=== PATIENT | female | born 1950 | race Caucasian/White ===

== ENCOUNTER 2020-05-08 12:49 | Outpatient (CLI) | payer MEDICARE, SELFPAY ==
--- NOTE | ~2020-05-08 | MMUS_ITS ---
EXAMINATION: MM diagnostic latoya LT w chance, US breast LT complete HISTORY: Six-month follow-up of left breast microcalcifications TECHNIQUE: 3-D tomosynthesis images of left breast were performed and synthetic 2-D images were gener ated. Magnification views. CAD analysis was submitted and interpreted. High resolution complete left breast ultrasound was performed. COMPARISON: 02/21/2019 diagnostic left digital mammogram 08/29/2018 diagnostic left digital mammogram 07/28/2018, 07/24/2017, 06/29/2016 bilateral digital screening mammogram BREAST PARENCHYMAL COMPOSITION: The breasts are extremely dense, which lowers the sensitivity of mamm ography. FINDINGS: MAMMOGRAPHIC FINDINGS: Indeterminate clusters of grouped microcalcifications are identified in the upper mid left breast and upper outer quadrant of the left breast. Stereotactic biopsy is recommended. The dense stroma prevents confident mammographic exclusion of small masses. ULTRASOUND: No solid mass or suspicious shadowing of the left breast is detected. IMPRESSION: 1. 2 clusters of grouped microcalcifications, upper mid and upper outer left breast 2. Stereotactic biopsy is recommended. BI-RADS category 4, suspicious findings. Reviewed, dictated and finalized at location A. IMPRESSION: 1. 2 clusters of grouped microcalcifications, upper mid and upper outer left br east 2. Stereotactic biopsy is recommended. BI-RADS category 4, suspicious findings.
== END 2020-05-08 12:50 | disposition home or self-care (01) ==
LOC: ANHIMG 12:50
PROVIDERS: PCP Family Medicine; Visit Provider Family Medicine
DX: R92.8 Other abnormal and inconclusive findings on diagnostic imaging of breast (principal)
CPT/HCPCS: 76641; 77061; 77065; G0279

== ENCOUNTER 2020-06-04 00:54 | Outpatient (CLI) | payer MEDICARE, SELFPAY ==
[2020-06-04 19:34] LABS: SARS-CoV-2 RNA PCR Negative
== END 2020-06-04 00:55 | disposition home or self-care (01) ==
LOC: ANHCOVIDDT 00:54
PROVIDERS: PCP Family Medicine; Visit Provider Surgery
DX: Z01.812 Encounter for preprocedural laboratory examination (principal); Z11.59 Encounter for screening for other viral diseases
CPT/HCPCS: 87635; C9803; U0003

== ENCOUNTER 2020-06-06 02:49 | Day surgery (SDC) | payer MEDICARE, SELFPAY ==
[2020-05-31 09:18] VITALS: BMI 17.2
--- NOTE | 2020-06-05 12:36 | P.PNAN_ITS ---
Anes - Initial Pre Proc Eval Procedure: Operation Date: 06/06/20 10:00 Proposed Procedures p Ultrasound And/Or Mammogram Guided Needle Localization, Excisional Biopsy of Left Breast - Soren Jon MD Date/Time: 06/05/20 12:36 Surgeon: Soren Jon MD Pre Op Diagnosis: Microcalcification of Left Breast Patient Data Age: 69 Gender: F Height: 5 ft 4.5 in Weight: 46.28 kg Allergies Allergy/AdvReac Type Severity Reaction Status Date / Time No Known Allergies Allergy Verified 06/06/20 06:49 Home Medications Medication Instructions Recorded Confirmed Type calcium-vitamin D3-vitamin K 2 tablet PO DAILY 05/31/20 06/06/20 History [Viactiv] sertraline 100 mg PO DAILY 05/31/20 06/06/20 History Patient hx anesthesia problems: none Family hx anesthesia problems: none [facility] Social History Social History Smoking status: Never smoker Second hand tobacco smoke exposure: No Alcohol intake: current Substance use: never Substance use type: does not use Living arrangements: alone Spiritual care concerns: No Anes - Eval Final PreProcedure Day of Procedure 06/05/20 12:36 Patient weight: normal Heart: regular rate and rhythm Lungs: clear to auscultation Airway: Mallampati scale class II Neurological: alert and oriented Last oral intake: >/= 8 hours ASA classification: II Emergent: no Anesthetic plan: proceed Anesthesia type and monitoring: general GIVS and standard monitoring Informed Consent: The patient's anesthetic plan and its attendant risks and benefits were discussed with the patient/family/POA. Questions were solicited and answers provided to the satisfaction of the patient/family/POA.
--- NOTE | ~2020-06-06 | MM_ITS ---
EXAMINATION: MM needle loc LT, MM surgical specimen LT, MM surgical specimen LT, MM needle loc LT ea add DATE: 06/06/2020 09:19 (accession [id number]), 06/06/2020 11:17 (accession [id number]) INDICATION: Indeterminate left breast calcifications. Patient presents for surgical excision due to i nability to perform stereotactic biopsy. TECHNIQUE: The procedure for a mammography-guided needle localization was discussed with the patient. Risks and benefits were detailed including risks of bleeding and infection. The patient verbalized u nderstanding and agreed to proceed. A time out was performed to verify the patient's name, date of , and site of procedure. The rajan ent was placed in craniocaudal compression, and the skin overlying the left breast was prepared in u sual fashion. Two groups of calcifications are identified, one in the posterior third of the outer br east and one in the middle third of the central breast. The skin and subcutaneous soft tissues were i nfiltrated with 1% lidocaine for local anesthesia. Utilizing mammography guidance, a needles were adv anced into the left breast. Procedure was technically complicated due to breast size and difficulty o btaining adequate needle purchase in the breast between switching positions. Two confirmatory films w ere obtained. The patient tolerated procedure without immediate complication. Specimen radiographs were performed. FINDINGS: Two view confirmatory films of the left breast demonstrates a wire is adjacent to the indet erminate calcifications. The more lateral and posterior group of calcifications is seen just beyond t he hook of the localization wire. The central calcifications are seen adjacent to the tip of the loca lization wire. The calcifications are contained within the surgical specimens. IMPRESSION: 1. Successful mammography-guided left breast needle localization. Reviewed, dictated and finalized at location D. IMPRESSION: 1. Successful mammography-guided left breast needle localization. IMPRESSION: 1. Successful mammography-guided left breast needle localization. IMPRESSION: 1. Successful mammography-guided left breast needle localization.
[2020-06-06] MEDS: LACTATED RINGERS 1,000 ML 30 ML IV CONT (07:20)
--- NOTE | 2020-06-06 07:43 | SUR.PREOP ---
To mammography per w/c.
[2020-06-06 08:01] VITALS: BP 110/54; PULSE 59; RESP 16; TEMP 36.6; O2SAT 100
--- NOTE | 2020-06-06 09:21 | SUR.PREOP ---
0905 returned from [facility] .
--- NOTE | 2020-06-06 09:52 | WPDHPUPDATE1 ---
History and Physical Update Update Date/Time: 06/06/20 09:52 History and Physical has been reviewed, including an updated exam of the patient. There are NO changes in the patient's condition. Risks, benefits, and alternatives have been discussed and questions answered. Patient agrees to proceed with procedure.
[2020-06-06] MEDS: ceFAZolin 2 GM/D5W 50 ML 2 GM/50 ML BAG IVPB (10:18)
[2020-06-06] MEDS: BUPIVACAINE/EPINEPHRINE 0.5% 30 ML VIAL INFILTRATE (10:54)
[2020-06-06 11:25] VITALS: BP 122/48; PULSE 96; RESP 14; TEMP 36.1; O2SAT 96
--- NOTE | 2020-06-06 11:39 | PM.PROC ---
Procedure Note - Detailed Date of procedure: 06/06/20 Pre-op diagnosis: Microcalcification of Left Breast Microcalcifications in 2 areas of left breast, 1 above the nipple, 1 lateral. Post-op diagnosis: same Procedure performed: Needle localization excisional biopsy of 2 left breast lesions Description of procedure: The patient went to x-ray prior to surgery. I discussed the localization procedure with the radiologist Dr. Cedillo. Wire localization was performed. I saw her preoperatively in the holding area. She went back to surgery in was induced into general anesthesia per LMA. The left breast was prepped and draped taking care not to disturb the localizing wires. Two incisions were marked on the skin. The upper midline lesion was marked with a a curved incision just above the nipple judged to be near the tip of the more medial wire. The 2nd incision was also circumareolar but oriented more cranial to caudal in the lateral aspect of the left breast. We started with the upper midline lesion. Local anesthesia was infiltrated in the area of the anticipated incision and in the deeper subcutaneous tissues. Incision was made and just below the skin we can see that the tip of the wire was very close. The calcifications were very superficial as well. This area of breast tissue was carefully and completely excised leaving the wire in place. Specimen mammogram showed that the microcalcifications were included in the specimen. This wound was closed with deeper let tissue closure of 3 0 Monocryl. Subcuticular interrupted 4 O Monocryl skin stitches were placed. We then turned our attention to the more lateral grouping of microcalcifications. This proposed incision was infiltrated with local as well. Incision was made and dissection was carried down through the breast tissue to the area of the hook of the wire. The wire was dissected away from the hook and then the into the wire was pulled through the skin and brought out the wound. I then excised the hook of the wire with the corresponding breast tissue. This was submitted for mammographies. The microcalcifications were not in the specimen. I discussed this with the radiologist, Dr. Cedillo. It appeared that the microcalcifications would be more caudal than the tissue I already removed. I then targeted this area of breast tissue and excised 2 additional pieces of breast tissue. These were sent for specimen mammogram. The larger of the 2 pieces did contain the microcalcifications. This wound was made hemostatic with the cautery. It was closed in layers with interrupted 3 0 Monocryl suture. Subcuticular interrupted 4 O Monocryl skin stitches were placed. The wound was dressed with Exofin surgical adhesive. The patient tolerated the procedure well. She transferred to recovery in good condition. Sponge and needle counts were correct x2. Anesthesia: GLMA Surgeon: Soren Jon MD [employer]icated Local [employer] Driver: Ari TAMAYO Estimated blood loss (mL): 5 Drains: No Packing: No Pathology: yes ( to areas of microcalcification: 1 upper midline or medial; the other lateral) Complications: None Condition: stable Disposition: PACU Findings: specimen mammogram confirmed presence of microcalcifications in both biopsy submitted.
[2020-06-06 11:40] VITALS: BP 114/60; PULSE 83; RESP 20; O2SAT 100
[2020-06-06 11:55] VITALS: BP 114/63; PULSE 77; RESP 14; O2SAT 100
[2020-06-06 11:59] VITALS: BP 125/65; PULSE 76; RESP 14
[2020-06-06 12:25] VITALS: BP 129/65; PULSE 83; RESP 14
== END 2020-06-06 12:39 | disposition home or self-care (01) ==
PROVIDERS: PCP Family Medicine; Visit Provider Surgery
PROC: (CPT 19125; principal; 2020-06-06 10:00)
DX: N60.32 Fibrosclerosis of left breast (principal); N60.42 Mammary duct ectasia of left breast; N62 Hypertrophy of breast; F32.9 Major depressive disorder, single episode, unspecified; F41.9 Anxiety disorder, unspecified; Z80.0 Family history of malignant neoplasm of digestive organs; Z79.899 Other long term (current) drug therapy
CPT/HCPCS: 19125; 19126; 19281; 19282; 76098; 88305; A9270; C1769; J0690; J1100; J2405; J2704; J3010; J7120

== ENCOUNTER 2021-12-05 07:50 | Outpatient (CLI) | payer MEDICARE, SELFPAY ==
--- NOTE | ~2021-12-05 | MM_ITS ---
EXAMINATION: MM screening latoya BI w chance HISTORY: Screening mammogram TECHNIQUE: Craniocaudal and mediolateral oblique 3-D tomosynthesis images were obtained and synthetic 2-D images were generated. Bilateral rotated lateral CC views. CAD analysis was submitted and interp reted. COMPARISON: 05/08/2020 diagnostic left mammogram and complete left breast ultrasound 02/21/2019, 08/19/2018 diagnostic left mammogram examinations 07/28/2018, 07/24/2017 bilateral screening mammogram examinations BREAST PARENCHYMAL COMPOSITION: The breasts are heterogeneously dense, which may obscure small masses . FINDINGS: Previously reported 2 clusters of grouped left breast microcalcifications are no longer melly dent; history of benign open biopsy. There is architectural distortion in the upper left breast, best demonstrated on MLO Tomosynthesis im age 16/33, possibly due to postbiopsy change. Diagnostic left mammogram and left breast ultrasound ex amination are recommended. Otherwise there is no evidence of suspicious mass, calcification, or architectural distortion to sugg est malignancy in either breast. There has been no other suspicious interval change. IMPRESSION: 1. Architectural distortion, upper left breast, possibly due to prior reported open biopsy 2. Diagnostic left mammogram and left breast ultrasound examination are recommended. BI-RADS Category 0: Incomplete: Needs additional imaging evaluation. Reviewed, dictated and finalized at location A. D BROOMER IMPRESSION: 1. Architectural distortion, upper left breast, possibly due to prior reported open biopsy 2. Diagnostic left mammogram and left breast ultrasound examination are recomme nded. BI-RADS Category 0: Incomplete: Needs additional imaging evaluation.
== END 2021-12-05 07:51 | disposition home or self-care (01) ==
LOC: ANHIMG 07:52
PROVIDERS: PCP Family Medicine; Visit Provider Family Medicine
DX: Z12.31 Encounter for screening mammogram for malignant neoplasm of breast (principal); R92.8 Other abnormal and inconclusive findings on diagnostic imaging of breast
CPT/HCPCS: 77063; 77067

== ENCOUNTER 2021-12-26 12:38 | Outpatient (CLI) | payer MEDICARE, SELFPAY ==
--- NOTE | ~2021-12-26 | MM_ITS ---
EXAMINATION: MM diagnostic latoya LT w chance HISTORY: Left breast architectural distortion TECHNIQUE: Additional 3-D tomosynthesis images of the left breast were performed and synthetic 2-D im ages were generated. CAD analysis was submitted and interpreted. COMPARISON: 11/15/2021, 06/06/2020, 04/30/2020,10/10/2019, 02/21/2019 FINDINGS: Left breast architectural distortion is seen at the site of excisional biopsy performed on 06/06/2020. No suspicious interval change is identified. There is no mass or suspicious calcification. IMPRESSION: 1. No mammographic evidence of malignancy. 2. Recommend routine screening mammography in one year. BI-RADS Category 2: Benign finding(s). Reviewed, dictated and finalized at location A.
== END 2021-12-26 12:39 | disposition home or self-care (01) ==
PROVIDERS: PCP Family Medicine; Visit Provider Family Medicine
DX: R92.8 Other abnormal and inconclusive findings on diagnostic imaging of breast (principal)
CPT/HCPCS: 77061; 77065; G0279

== ENCOUNTER 2023-01-29 07:44 | Outpatient (CLI) | payer MEDICARE, SELFPAY ==
--- NOTE | ~2023-01-29 | DEXA_ITS ---
Bone Density Report Name: JAYLAN MUNOZ Age: 72 Sex: Female Ethnicity: White Date of : 1950 Indication: osteopenia; postmenopausal Referring Provider: RIMA RODRÍGUEZ Study: Bone densitometry was performed. Exam Date: January 29, 2023 Accession number: [id number] Bone Density: Region BMD T-score Z-score Classification AP Spine(L1-L4) 0.872 -1.6 0.6 Osteopenia Femoral Neck (Left) 0.528 -2.9 -1.0 Osteoporosis Total Hip (Left) 0.680 -2.1 -0.6 Osteopenia Femoral Neck (Right) 0.506 -3.1 -1.2 Osteoporosis Total Hip (Right) 0.650 -2.4 -0.8 Osteopenia Total Hip Mean 0.665 -2.3 -0.7 Osteopenia World Health Organization criteria for BMD impression classify patients as: Normal (T-score at or above -1.0), Osteopenia (T-score between -1.0 and -2.5), or Osteoporosis (T-score at or below -2.5). 10-year Fracture Risk: FRAX not reported because: Some T-score for Spine Total or Hip Total or Femoral Neck at or below -2.5 Previous Exams: Region Exam Age BMD T-score BMD Change BMD Change Date g/cm2 vs Baseline vs Previous AP Spine (L1-L4) 01/29/2023 72 0.872 -1.6 -0.017 (-1.9%) -0.017 (-1.9%) 09/23/2017 66 0.889 -1.4 Total Hip(Left) 01/29/2023 72 0.680 -2.1 -0.062 (-8.4%) -0.062 (-8.4%) 09/23/2017 66 0.743 -1.6 Total Hip(Right) 01/29/2023 72 0.650 -2.4 -0.047 (-6.7%) -0.047 (-6.7%) 09/23/2017 66 0.697 -2.0 *Denotes significance at 95% confidence level, LSC for AP Spine = 0.022 g/cm2, LSC for Total Hip = 0.027 g/cm2 Clinical Information Provided by Patient: Has used the following medications: Fosamax (i.e. alendronate), Vitamin D, Calcium Patient maximum height was 64.5 Menopause Age: 56 Drinks caffeinated beverages Onset of menses at age 15 Number of children 3 Impression: The patient has osteoporosis, based on the Right Femoral Neck T-score. The BMD for the Total Hip(Left) decreased, changing by -8.4% since the last DXA exam. The BMD for the Total Hip(Right) decreased, changing by -6.7% since the last DXA exam. Discussion: INCREASED RISK OF FRACTURE. BONE DENSITY IS UNDESIRABLY LOW AT ONE OR MORE SKELETAL SITES, CONSISTENT WITH POSTMENOPAUSAL OSTEOPOROSIS. This patient's lowest T-score meets the World Health Organization's (WHO) criteria for osteoporosis at one or more sites (T-score -2.5 or below). In untreated patients, the risk of osteoporotic fracture increases approximately two-fold for each 1.0 SD decrease in
--- NOTE | ~2023-01-29 | MM_ITS ---
EXAMINATION: MM screening [facility] BI w chance HISTORY: Screening mammogram TECHNIQUE: Craniocaudal and mediolateral oblique 3-D tomosynthesis images were obtained and synthetic 2-D images were generated. CAD analysis was submitted and interpreted. COMPARISON: 12/26/2021, 12/05/2021, 05/08/2020, 02/21/2019, 07/28/2018 BREAST PARENCHYMAL COMPOSITION: The breasts are heterogeneously dense, which may obscure small masses . FINDINGS: No suspicious mass, calcification, or architectural distortion are identified in either vicente ast to suggest malignancy. There has been no suspicious interval change. IMPRESSION: 1. No mammographic evidence of malignancy. 2. Recommend routine screening mammography in one year. BI-RADS Category 1: Negative Reviewed, dictated and finalized at location A.
== END 2023-01-29 07:45 | disposition home or self-care (01) ==
PROVIDERS: PCP Family Medicine; Visit Provider Family Medicine
DX: Z12.31 Encounter for screening mammogram for malignant neoplasm of breast (principal); M81.0 Age-related osteoporosis without current pathological fracture; Z78.0 Asymptomatic menopausal state
CPT/HCPCS: 77063; 77067; 77080

== ENCOUNTER 2023-12-02 08:57 | Outpatient (CLI) | payer MEDICARE, SELFPAY ==
[2023-12-02 13:35] LABS: Basophils Percent Auto 0.7 % (0.2-1.2); Eosinophils Absolute Auto 0.2 K/mm3 (0-0.3); Eosinophils Percent Auto 3.3 % (0-4.4); Hematocrit 43.3 % (37.0-47.0); Hemoglobin 13.5 g/dL (12.0-15.0); Immature Granulocyte Absolute 0.01 K/mm3 (0.00-0.031); Immature Granulocyte Percent A 0.2 % (0-0.5); Lymphocytes Absolute Auto 0.98 K/mm3 (0.9-3.2); Lymphocytes Percent Auto 21.3 % (18.3-44.2); Mean Corpuscular HGB Conc 31.2 g/dl (32-36); Mean Corpuscular Hemoglobin 29.4 pg (26-34); Mean Corpuscular Volume 94.3 fl (80-100); Monocytes Absolute Auto 0.3 K/mm3 (0.1-0.6); Monocytes Percent Auto 6.7 % (2.6-8.5); Neutrophils Absolute Auto 3.1 K/mm3 (1.3-6.7); Neutrophils Percent Auto 67.8 % (45.5-73.1); Platelet Count Result 226 k/mm3 (150-375); Red Blood Count 4.59 M/mm3 (4.2-5.4); Red Cell Distribution Width 13.7 % (11.5-14.5); White Blood Count 4.6 K/mm3 (4.5-10.0)
[2023-12-02 14:20] LABS: Alanine Aminotransferase 20 U/L (6-35); Albumin Level 4.3 g/dL (3.5-5.1); Alkaline Phosphatase 73 U/L (38-126); Anion Gap 6 mmol/L (8-16); Aspartate Amino Transferase 46 U/L (14-36); Bilirubin,Total 0.5 mg/dL (0.2-1.3); Blood Urea Nitrogen 18 mg/dL (7-17); Calcium 9.4 mg/dL (8.4-10.2); Carbon Dioxide 30 mmol/L (22-30); Chloride 102 mmol/L (98-107); Cholesterol 177 mg/dL (0-200); Estimated Glomerular Filt Rate > 60; Glucose 86 mg/dL (65-110); HDL Direct 68 mg/dL; Potassium 4.3 mmol/L (3.4-5.0); Sodium 138 mmol/L (137-145); Triglycerides 107 mg/dL (<150)
[2023-12-02 14:32] LABS: LDL Cholesterol Direct 86 mg/dL
[2023-12-02 14:40] LABS: Vitamin D 25 Hydroxy 36.1 ng/mL
== END 2023-12-02 08:58 | disposition home or self-care (01) ==
LOC: ANHGOSHLAB 08:58
PROVIDERS: PCP Family Medicine; Visit Provider Family Medicine
DX: E78.5 Hyperlipidemia, unspecified (principal); R92.0 Mammographic microcalcification found on diagnostic imaging of breast; E53.8 Deficiency of other specified B group vitamins; F41.8 Other specified anxiety disorders; M81.0 Age-related osteoporosis without current pathological fracture; R49.0 Dysphonia; E55.9 Vitamin D deficiency, unspecified; Z79.899 Other long term (current) drug therapy
CPT/HCPCS: 36415; 80053; 80061; 82306; 82607; 84443; 85025

== ENCOUNTER 2023-12-30 06:43 | Day surgery (SDC) | payer MEDICARE, SELFPAY ==
[2023-12-04 15:20] VITALS: BMI 20.7
[2023-12-17 13:33] VITALS: BMI 20.4
--- NOTE | 2023-12-29 17:43 | WPDANESEPPF ---
Anes - Initial Pre Proc Eval Procedure: Operation Date: 12/30/23 08:30 Proposed Procedures p Colonoscopy - Agapito Sequeira MD Date/Time: 12/29/23 17:43 Surgeon: Agapito Sequeira MD Pre Op Diagnosis: Family HX Malignant Neoplasm of Digestive System Patient Data Age: 73 Gender: F Height: 1.63 m Weight: 54 kg Allergies Allergy/AdvReac Type Severity Reaction Status Date / Time No Known Allergies Allergy Verified 12/30/23 07:10 Home Medications Medication Instructions Recorded Confirmed Type calcium 650 mg-vitamin D3 12.5 2 tablet PO DAILY 05/31/20 12/30/23 History mcg-vitamin K 40 mcg chewable tablet (Viactiv) denosumab 60 mg/mL subcutaneous 60 mg subcut [id number] 12/02/23 12/30/23 History syringe (Prolia) sertraline 100 mg tablet 100 mg PO DAILY #90 tabs 12/07/23 12/30/23 Rx vitamin B complex 1 tablet PO DAILY 12/17/23 12/30/23 History Patient hx anesthesia problems: none Family hx anesthesia problems: none Results Review: All pre-operative results and documents have been reviewed as part of the pre-operative evaluation. [facility] Past Medical History Medical History (Updated 12/30/23 @ 08:19 by Agapito Sequeira MD) Adult acne Depression with anxiety 09/20/2018 Dysphonia Family history of colon cancer in mother History of benign breast biopsy History of colon polyps Osteoporosis without current pathological fracture 09/15/2017 Surgical History Surgical History History of cataract surgery Hx of breast biopsy 1995 and 199706/06/20 localization excisional bx left breast. Hx of section 1982, 1987, 1989 Family History Family History Mother Colon cancer Other Carcinoma of colon Family history of coronary artery disease Hypertension Social History Social History Smoking status: Never smoker Second hand tobacco smoke exposure: No Alcohol intake: current Drinks per week: 0 Alcohol use details: ON SPECIAL OCCASIONS Substance use: never Substance use type: does not use Do You Feel Safe in your Home?: Yes Lack of Transportation: No Lack of Food: Never True Current Housing: I Have Housing Concerned About Future Housing: No Difficulty Paying Gas/Electric Bills: No Difficulty Paying for Meds: No Currently Unemployed: No Education: Master's Degree or Higher Difficulty w/ Childcare or Family Care: No Living arrangements: alone Occupation/Education: retired Gender identity (if verbalized by the patient): Female Spiritual care concerns: No Agree to blood products: Yes Anes - Eval Final PreProcedure Day of Procedure 12/29/23 17:43 Patient weight: normal Heart: regular rate and rhythm Lungs: clear to auscultation and normal air movement Airway: Mallampati scale class II Neurological: alert and oriented Last oral intake: >/= 8 hours ASA classification: II Emergent: no Anesthetic plan: proceed Anesthesia type and monitoring: general GIVS and standard monitoring Results Review: All pre-operative results and documents have been reviewed as part of the pre-operative evaluation. Informed Consent: The patient's anesthetic plan and its attendant risks and benefits were discussed with the patient/family/POA. Questions were solicited and answers provided to the satisfaction of the patient/family/POA.
[2023-12-30 07:15] VITALS: BP 116/68; PULSE 67; RESP 14; TEMP 36.9; O2SAT 96
[2023-12-30] MEDS: LACTATED RINGERS 1,000 ML 150 ML IV CONT (07:24)
--- NOTE | 2023-12-30 08:16 | PM.HPGS ---
History of Present Illness History of Present Illness Consent: Risks, benefits, and alternatives have been discussed and questions answered. Patient agrees to proceed with procedure. Chief complaint: Family HX Malignant Neoplasm of Digestive System Narrative: Maria Antonia Peralta is a 73 year old female presents for screening colonoscopy. Patient's current weight appetite and bowel movements are normal. Patient denies abdominal pain. Has had no bleeding. Family history is significant that her mother had colon cancer. Patient may have had colon polyps years ago Review of Systems Review of Systems: Review of systems noncontributory. [facility] Past Medical History Medical History (Updated 12/30/23 @ 08:19 by Agapito Sequeira MD) Adult acne Depression with anxiety 09/20/2018 Dysphonia Family history of colon cancer in mother History of benign breast biopsy History of colon polyps Osteoporosis without current pathological fracture 09/15/2017 Surgical History Surgical History History of cataract surgery Hx of breast biopsy 1995 and 199706/06/20 localization excisional bx left breast. Hx of section 1982, 1987, 1989 Family History Family History Mother Colon cancer Other Carcinoma of colon Family history of coronary artery disease Hypertension Social History Social History Smoking status: Never smoker Second hand tobacco smoke exposure: No Alcohol intake: current Drinks per week: 0 Alcohol use details: ON SPECIAL OCCASIONS Substance use: never Substance use type: does not use Do You Feel Safe in your Home?: Yes Lack of Transportation: No Lack of Food: Never True Current Housing: I Have Housing Concerned About Future Housing: No Difficulty Paying Gas/Electric Bills: No Difficulty Paying for Meds: No Currently Unemployed: No Education: Master's Degree or Higher Difficulty w/ Childcare or Family Care: No Living arrangements: alone Occupation/Education: retired Gender identity (if verbalized by the patient): Female Spiritual care concerns: No Agree to blood products: Yes Meds Home Medications and Allergies Home Medications Medication Instructions Recorded Confirmed Type calcium 650 mg-vitamin D3 12.5 2 tablet PO DAILY 05/31/20 12/30/23 History mcg-vitamin K 40 mcg chewable tablet (Viactiv) denosumab 60 mg/mL subcutaneous 60 mg subcut [id number] 12/02/23 12/30/23 History syringe (Prolia) sertraline 100 mg tablet 100 mg PO DAILY #90 tabs 12/07/23 12/30/23 Rx vitamin B complex 1 tablet PO DAILY 12/17/23 12/30/23 History Allergies Allergy/AdvReac Type Severity Reaction Status Date / Time No Known Allergies Allergy Verified 12/30/23 07:10 Vital Signs Vital Signs - 24 hr 12/30/23 07:15 Temperature 98.4 F Pulse Rate 67 Respiratory Rate 14 Blood Pressure 116/68 Pulse Oximetry 96 Oxygen Delivery Room Air Exam Narrative: Physical exam reveals patient to be alert. Vital signs stable. HEENT exam is unremarkable. the patient Is hard of hearing. patient is anicteric. Lungs are clear to auscultation and percussion. Heart is without murmur or extra sounds. Abdomen now nodes are present soft nontender with no organomegaly. Digital external rectal exam normal. Assessment and Plan Assessment and plan (1) Family history of colon cancer in mother: Code(s): Z80.0 - Family history of malignant neoplasm of digestive organs Status: Acute Assessment and Plan: Patient's mother has had colon cancer. Plan for surveillance colonoscopy at 5 year intervals.
[2023-12-30 08:49] VITALS: BP 85/44; PULSE 70; RESP 16; O2SAT 99
[2023-12-30 08:59] VITALS: BP 91/58; PULSE 66; RESP 16; O2SAT 100
[2023-12-30 09:09] VITALS: BP 104/74; PULSE 64; RESP 20; O2SAT 100
--- NOTE | 2023-12-30 12:28 | WPDANESPN ---
Anes - Prog Note Post-Op Date/Time: 12/30/23 12:28 Cardiovascular status: normal Respiratory status: normal Airway patency: baseline Mental status: baseline Post-Op hydration status: normal Vital Signs: Last Vital Signs Temp 36.9 C 12/30/23 07:15 Pulse 64 12/30/23 09:09 Resp 20 12/30/23 09:09 BP 104/74 12/30/23 09:09 Pulse Ox 100 12/30/23 09:09 O2 Del Method Room Air 12/30/23 09:09 Pain Score (VAS): 0 I/O: Intake & Output 12/29/23 12/30/23 12/30/23 23:59 07:59 15:59 Intake Total 600 Balance 600 Post-procedural complaints: none Patient Feedback: Patient satisfied with anesthetic care. Other Findings: Patient vital signs back to baseline. Patient denies nausea and vomiting. Patient's pain under control. Patient OK for discharge.
== END 2023-12-30 09:20 | disposition home or self-care (01) ==
PROVIDERS: PCP Family Medicine; Visit Provider Internal Medicine Gastroenterology
PROC: 0DJD8ZZ Inspection of Lower Intestinal Tract, Via Natural or Artificial Opening Endoscopic (ICD-10-PCS; CPT 45378; principal; 2023-12-30 08:30)
DX: Z80.0 Family history of malignant neoplasm of digestive organs (principal); D12.5 Benign neoplasm of sigmoid colon; K57.30 Diverticulosis of large intestine without perforation or abscess without bleeding; K64.8 Other hemorrhoids
CPT/HCPCS: 45380

== ENCOUNTER 2023-12-30 14:24 | Outpatient (NON) | payer MEDICARE, SELFPAY | END 2023-12-30 14:25 | disposition home or self-care (01) | PROVIDERS: PCP Family Medicine; Visit Provider Internal Medicine Gastroenterology | DX: Z12.11 Encounter for screening for malignant neoplasm of colon (principal); Z80.0 Family history of malignant neoplasm of digestive organs | CPT/HCPCS: 88305 ==

== ENCOUNTER 2024-03-10 09:39 | Outpatient (CLI) | payer MEDICARE, SELFPAY ==
[2024-03-10 13:45] LABS: Alanine Aminotransferase 18 U/L (6-35); Albumin Level 4.5 g/dL (3.5-5.1); Alkaline Phosphatase 76 U/L (38-126); Anion Gap 4 mmol/L (4-12); Aspartate Amino Transferase 37 U/L (14-36); Bilirubin,Total 0.5 mg/dL (0.2-1.3); Blood Urea Nitrogen 21 mg/dL (7-17); Calcium 9.4 mg/dL (8.4-10.2); Carbon Dioxide 30 mmol/L (22-30); Chloride 103 mmol/L (98-107); Estimated Glomerular Filt Rate > 60; Glucose 91 mg/dL (65-110); Potassium 4.3 mmol/L (3.4-5.0); Sodium 137 mmol/L (137-145)
== END 2024-03-10 09:40 | disposition home or self-care (01) ==
LOC: ANHGOSHLAB 09:41
PROVIDERS: PCP Family Medicine; Visit Provider Nurse Practitioner Family
DX: R74.8 Abnormal levels of other serum enzymes (principal)
CPT/HCPCS: 36415; 80053

== ENCOUNTER 2024-03-23 08:25 | Outpatient (CLI) | payer MEDICARE, SELFPAY ==
--- NOTE | ~2024-03-23 | MM_ITS ---
EXAMINATION: MM screening latoya BI w chance HISTORY: Screening TECHNIQUE: Craniocaudal and mediolateral oblique 3-D tomosynthesis images were obtained and synthetic 2-D images were generated. CAD analysis was submitted and interpreted. COMPARISON: Comparison to multiple prior studies sequentially, with oldest reviewed study dated 12/05. BREAST PARENCHYMAL COMPOSITION: Dense: The breasts are heterogeneously dense, which may obscure small masses FINDINGS: There are new asymmetries in the central aspect of the right breast. The left breast is sta ble without evidence for malignancy. IMPRESSION: 1. New right breast asymmetries. 2. Additional mammographic views and possible breast ultrasound are recommended. BI-RADS Category 0: Incomplete: Needs additional imaging evaluation. Reviewed, dictated and finalized at location B. IMPRESSION: 1. New right breast asymmetries. 2. Additional mammographic views and possible breast ultrasound are recommended . BI-RADS Category 0: Incomplete: Needs additional imaging evaluation.
== END 2024-03-23 08:26 | disposition home or self-care (01) ==
LOC: ANHIMG 08:27
PROVIDERS: PCP Family Medicine; Visit Provider Family Medicine
DX: Z12.31 Encounter for screening mammogram for malignant neoplasm of breast (principal); R92.8 Other abnormal and inconclusive findings on diagnostic imaging of breast
CPT/HCPCS: 77063; 77067

== ENCOUNTER 2024-04-07 13:22 | Outpatient (CLI) | payer MEDICARE, SELFPAY ==
--- NOTE | ~2024-04-07 | MM_ITS ---
EXAMINATION: MM diagnostic latoya RT w chance HISTORY: Right breast asymmetry TECHNIQUE: Additional 3-D tomosynthesis images of the right breast were performed and synthetic 2-D i mages were generated. CAD analysis was submitted and interpreted. COMPARISON: 03/23/2024, 01/29/2023, 12/05/2021 FINDINGS: Breast parenchyma is heterogeneously dense, which may obscure small masses. The area of asymmetry in the right breast effaces with spot compression. No persistent mass lesion or distortion seen. No suspicious microcalcification. IMPRESSION: No mammographic evidence for malignancy. BI-RADS Category 1: Negative Reviewed, dictated and finalized at location .
== END 2024-04-07 13:23 | disposition home or self-care (01) ==
PROVIDERS: PCP Family Medicine; Visit Provider Nurse Practitioner
DX: R92.8 Other abnormal and inconclusive findings on diagnostic imaging of breast (principal)
CPT/HCPCS: 77061; 77065; G0279

== ENCOUNTER 2024-12-07 09:05 | Outpatient (CLI) | payer MEDICARE, SELFPAY ==
[2024-12-07 10:29] LABS: Alanine Aminotransferase 20 U/L (6-35); Albumin Level 4.4 g/dL (3.5-5.1); Alkaline Phosphatase 76 U/L (38-126); Anion Gap 6 mmol/L (4-12); Aspartate Amino Transferase 24 U/L (14-36); Bilirubin,Total 0.4 mg/dL (0.2-1.3); Blood Urea Nitrogen 17 mg/dL (7-17); Calcium 8.9 mg/dL (8.4-10.2); Carbon Dioxide 30 mmol/L (22-30); Chloride 104 mmol/L (98-107); Cholesterol 176 mg/dL (0-200); Estimated Glomerular Filt Rate > 60; Glucose 90 mg/dL (65-110); HDL Direct 78 mg/dL; Potassium 4.9 mmol/L (3.4-5.0); Sodium 140 mmol/L (137-145); Triglycerides 92 mg/dL (<150)
[2024-12-07 10:31] LABS: Basophils Percent Auto 0.8 % (0.2-1.2); Eosinophils Absolute Auto 0.2 K/mm3 (0-0.3); Eosinophils Percent Auto 3.3 % (0-4.4); Hematocrit 42.6 % (37.0-47.0); Hemoglobin 13.5 g/dL (12.0-15.0); Immature Granulocyte Absolute 0.01 K/mm3 (0.00-0.031); Immature Granulocyte Percent A 0.2 % (0-0.5); Lymphocytes Absolute Auto 0.89 K/mm3 (0.9-3.2); Lymphocytes Percent Auto 17.3 % (18.3-44.2); Mean Corpuscular HGB Conc 31.7 g/dl (32-36); Mean Corpuscular Hemoglobin 29.6 pg (26-34); Mean Corpuscular Volume 93.4 fl (80-100); Mean Platelet Volume 10.8 fl (7.4-10.4); Monocytes Absolute Auto 0.3 K/mm3 (0.1-0.6); Monocytes Percent Auto 6.2 % (2.6-8.5); Neutrophils Absolute Auto 3.7 K/mm3 (1.3-6.7); Neutrophils Percent Auto 72.2 % (45.5-73.1); Platelet Count Result 204 k/mm3 (150-375); Red Blood Count 4.56 M/mm3 (4.2-5.4); Red Cell Distribution Width 13.2 % (11.5-14.5); White Blood Count 5.1 K/mm3 (4.5-10.0)
[2024-12-07 10:40] LABS: LDL Cholesterol Direct 76 mg/dL
[2024-12-07 20:06] LABS: Hemoglobin A1C 5.6 % (<5.7)
[2024-12-07 20:54] LABS: Vitamin D 25 Hydroxy 33.1 ng/mL
== END 2024-12-07 09:06 | disposition home or self-care (01) ==
LOC: ANHGOSHLAB 09:05
PROVIDERS: PCP Family Medicine; Visit Provider Family Medicine
DX: E78.5 Hyperlipidemia, unspecified (principal); R73.9 Hyperglycemia, unspecified; E55.9 Vitamin D deficiency, unspecified; F41.8 Other specified anxiety disorders; R74.8 Abnormal levels of other serum enzymes; E53.8 Deficiency of other specified B group vitamins; Z79.899 Other long term (current) drug therapy
CPT/HCPCS: 36415; 80053; 80061; 82306; 82607; 83036; 84443; 85025

== ENCOUNTER 2024-12-07 10:09 | Outpatient (CLI) | payer MEDICARE, SELFPAY ==
--- NOTE | ~2024-12-07 | US_ITS ---
EXAMINATION: US thyroid DATE: 12/07/2024 10:21 INDICATION: Nontoxic goiter TECHNIQUE: Multiple ultrasound images of the thyroid were obtained. COMPARISON: None. FINDINGS: The right thyroid lobe measures 5.2 x 2.4 x 2.2 cm. The left thyroid lobe measures 5.3 x 1.4 x 1.3 c m. Wider than tall 2.9 x 2.0 x 2.1 cm solid isoechoic and hypervascular nodule with smooth margins a nd without echogenic foci in the right thyroid lobe (TI-RADS 3, mildly suspicious , FNA if >=2.5 cm, annual followup is >=1.5 cm). There is a second 1.2 cm nodule in the left thyroid with similar imagin g features with the exception of also containing some hyperechoic foci, (TI-RADS 4, moderately suspic ious , FNA if >=1.5 cm, annual followup is >=1 cm). IMPRESSION: 1. 2.9 cm TI RADS 3 right thyroid nodule for which ultrasound guided fine-needle aspiration would be recommended and 1.2 cm TI RADS 4 left thyroid nodule for which annual ultrasound follow-up would be r ecommended. Reviewed, dictated and finalized at location B. [facility]MINISTR[facility] IMPRESSION: 1. 2.9 cm TI RADS 3 right thyroid nodule for which ultrasound guided fine-needl e aspiration would be recommended and 1.2 cm TI RADS 4 left thyroid nodule for which annual ultrasound follow-up would be recommended.
== END 2024-12-07 10:10 | disposition home or self-care (01) ==
LOC: GOSHIMG 10:09
PROVIDERS: PCP Family Medicine; Visit Provider Family Medicine
DX: E04.2 Nontoxic multinodular goiter (principal)
CPT/HCPCS: 76536

== ENCOUNTER 2025-01-05 12:32 | Outpatient (CLI) | payer MEDICARE, SELFPAY ==
--- NOTE | ~2025-01-05 | US_ITS ---
EXAMINATION: US FNA w image guidance DATE: 01/05/2025 13:30 INDICATION: Nontoxic single thyroid nodule. TECHNIQUE: The procedure and its benefits and risks were discussed with the patient. Risks specifically discusse d included bleeding. The patient verbalized understanding of the risks and agreed to proceed. The nec k was prepped and draped in the usual sterile manner. 1% lidocaine was used for local anesthesia. S ix passes were made with a 25G needle into the lesion under ultrasound guidance. There were no immed iate complications. FINDINGS: Grayscale ultrasound images demonstrate needles advanced into a 2.9 cm nodule in right thyroid lobe f or biopsy. IMPRESSION: 1. Ultrasound-guided fine needle aspiration of a right thyroid nodule. Reviewed, dictated and finalized at location A.
== END 2025-01-05 12:33 | disposition home or self-care (01) ==
PROVIDERS: PCP Family Medicine; Visit Provider Family Medicine
DX: E04.1 Nontoxic single thyroid nodule (principal)
CPT/HCPCS: 10005; 88172; 88173; 88305

== ENCOUNTER 2025-01-31 11:04 | Outpatient (CLI) | payer MEDICARE, SELFPAY ==
--- NOTE | ~2025-01-31 | DEXA_ITS ---
Bone Density Report Name: JAYLAN MUNOZ Age: 74 Sex: Female Ethnicity: White Date of : 1950 Indication: osteopenia; monitoring treatment; Referring Provider: RIMA RODRÍGUEZ Study: Bone densitometry was performed. Exam Date: January 31, 2025 Accession number: [id number] Bone Density: Region BMD T-score Z-score Classification AP Spine(L1-L4) 0.958 -0.8 1.5 Normal Femoral Neck (Left) 0.570 -2.5 -0.5 Osteoporosis Total Hip (Left) 0.718 -1.8 -0.2 Osteopenia Femoral Neck (Right) 0.526 -2.9 -0.9 Osteoporosis Total Hip (Right) 0.670 -2.2 -0.6 Osteopenia Total Hip Mean 0.694 -2.0 -0.4 Osteopenia World Health Organization criteria for BMD impression classify patients as: Normal (T-score at or above -1.0), Osteopenia (T-score between -1.0 and -2.5), or Osteoporosis (T-score at or below -2.5). 10-year Fracture Risk: FRAX not reported because: Some T-score for Spine Total or Hip Total or Femoral Neck at or below -2.5 Treated for osteoporosis Previous Exams: Region Exam Age BMD T-score BMD Change BMD Change Date g/cm2 vs Baseline vs Previous AP Spine (L1-L4) 01/31/2025 74 0.958 -0.8 0.069 (7.8%)* 0.086 (9.9%)* 01/29/2023 72 0.872 -1.6 -0.017 (-1.9%) -0.017 (-1.9%) 09/23/2017 66 0.889 -1.4 Total Hip(Left) 01/31/2025 74 0.718 -1.8 -0.025 (-3.3%) 0.038 (5.6%)* 01/29/2023 72 0.680 -2.1 -0.062 (-8.4%) -0.062 (-8.4%) 09/23/2017 66 0.743 -1.6 Total Hip(Right) 01/31/2025 74 0.670 -2.2 -0.027 (-3.8%) 0.020 (3.1%) 01/29/2023 72 0.650 -2.4 -0.047 (-6.7%) -0.047 (-6.7%) 09/23/2017 66 0.697 -2.0 *Denotes significance at 95% confidence level, LSC for AP Spine = 0.022 g/cm2, LSC for Total Hip = 0.027 g/cm2 Clinical Information Provided by Patient: Is being treated for osteoporosis Has used the following medications: Fosamax (i.e. alendronate), Vitamin D, Calcium Patient maximum height was 64.5 Menopause Age: 56 Drinks caffeinated beverages Onset of menses at age 15 Number of children 3 Impression: The patient has osteoporosis, based on the Right Femoral Neck T-score. No significant bone loss was observed. Discussion: PATIENT UNDER TREATMENT WITH NO SIGNIFICANT BMD LOSS SINCE LAST EXAM. In an untreated patient, BMD typically declines with age. A lack of decline or gain is usually a sign that treatment is efficacious and fracture risk is reduced. It is important to ask patients whether they are taking their medications and to encourage continued and appropriate compliance with their osteoporosis therapies to reduce fracture risk. It is also important to review their risk factors and encourage appropriate calcium and vitamin D intakes, exercise, fall prevention and other lifestyle measures. Follow-Up: Consider a repeat BMD and Vertebral Fracture Assessment (VFA) exam in 2 years or sooner if medically necessary, to reassess this patient's status. Reported by: ELIER on 01/31/2025 11:41:00 AM. Reviewed, dictated and finalized at location A. [facility]
== END 2025-01-31 11:05 | disposition home or self-care (01) ==
PROVIDERS: PCP Family Medicine; Visit Provider Family Medicine
DX: Z78.0 Asymptomatic menopausal state (principal); M81.0 Age-related osteoporosis without current pathological fracture; M85.852 Other specified disorders of bone density and structure, left thigh; M85.851 Other specified disorders of bone density and structure, right thigh
CPT/HCPCS: 77080

== ENCOUNTER 2025-05-05 14:22 | Outpatient (CLI) | payer MEDICARE, SELFPAY ==
--- NOTE | ~2025-05-05 | MM_ITS ---
EXAMINATION: MM screening latoya BI w chance HISTORY: Screening TECHNIQUE: Craniocaudal and mediolateral oblique 3-D tomosynthesis images were obtained and synthetic 2-D images were generated. CAD analysis was submitted and interpreted. COMPARISON: Comparison to multiple prior studies sequentially, with oldest reviewed study dated 06/06. BREAST PARENCHYMAL COMPOSITION: Dense: The breasts are heterogeneously dense, which may obscure small masses FINDINGS: There is no evidence of suspicious mass, calcification, or architectural distortion to sugg est malignancy in either breast. There has been no suspicious interval change. IMPRESSION: 1. No mammographic evidence of malignancy. 2. Recommend routine screening mammography in one year. BI-RADS Category 1: Negative Reviewed, dictated and finalized at location A.
== END 2025-05-05 14:23 | disposition home or self-care (01) ==
LOC: ANHIMG 14:23
PROVIDERS: PCP Family Medicine; Visit Provider Family Medicine
DX: Z12.31 Encounter for screening mammogram for malignant neoplasm of breast (principal)
CPT/HCPCS: 77063; 77067